=== PATIENT | female | born 1975 | race Caucasian/White ===

== ENCOUNTER 2016-10-20 22:40 | Emergency (ER) | payer OTHER ==
[2016-10-20 22:59] VITALS: BP 116/78; PULSE 83; TEMP 98.4; BMI 27.4
[2016-10-20] MEDS ORDERED: DEXAMETHASONE LIQUID 0.5 MG/5 ML 240 ML BULK BOTTLE PO ONE (23:17)
[2016-10-20] MEDS ORDERED: ALBUTEROL SO4 2.5/IPRATROPIUM 0.5 INH SOL 3 ML VIAL.NEB. NEB ONE ×2 (23:17→23:26)
--- NOTE | 2016-10-20 23:17 | PDOC ---
History of Present Illness - General History Source: Patient Exam Limitations: No Limitations - History of Present Illness Initial Comments: 10/20/16 23:22 The patient is 41 a year old female with a significant past medical history of asthma and hypertension, presenting to the Emergency Department with shortness of breath and cough for one week. The patient reports that she has had shortness of breath which has worsened over the past week, and that is worse at night. She admits to using an inhaler each night this week, most recently last night. The patient states that she believes her symptoms are due to her asthma, though she has not had an asthma attack in at least a year. The patient also admits to a nonproductive cough. The patients last menstrual period was earlier this month. The patient denies chills, or fever. Patient denies nausea, vomiting, and diarrhea. Patient denies palpitations, chest pain, and diaphoresis. Patient denies dizziness, or lightheadedness. Past Medical Hx: sciatica, herniated discs to LS, chronic lower back pain <Mare Garza - Last Filed: 10/20/16 23:22> <Hyun Verdugo - Last Filed: 10/22/16 05:03> - General Chief Complaint: Asthma Stated Complaint: DIFF. BREATHING Time Seen by Provider: 10/20/16 23:00 Past History <Mare Garza - Last Filed: 10/20/16 23:22> - Past Medical History Asthma: Yes (well controlled) HTN: Yes Suicide Attempt (Hx): No - Psycho/Social/Smoking Cessation Hx Anxiety: No Suicidal Ideation: No Smoking Status: No Smoking History: Never smoked Have you smoked in the past 12 months: No Number of Cigarettes Smoked Daily: 0 Information on smoking cessation initiated: No Hx Alcohol Use: No Drug/Substance Use Hx: No Substance Use Type: None <Hyun Verdugo - Last Filed: 10/22/16 05:03> - Past Medical History Allergies/Adverse Reactions: Allergies Allergy/AdvReac Type Severity Reaction Status Date / Time egg Allergy Verified 10/20/16 22:55 seafood Allergy Uncoded 10/20/16 22:55 Home Medications: Ambulatory Orders Hydrochlorothiazide [Hctz -] 25 mg PO DAILY 01/20/14 Azithromycin [Zithromax -] 250 mg PO UTDICT #4 tab 10/21/16 Prednisone [Deltasone -] 2 tab PO DAILY #10 tablet 10/21/16 Review of Systems - Review of Systems Able to Perform ROS?: Yes Comments:: 10/20/16 23:23 GENERAL/CONSTITUTIONAL: No fever or chills. No weakness. HEAD, EYES, EARS, NOSE AND THROAT: No change in vision. No ear pain or discharge. No sore throat. CARDIOVASCULAR: No chest pain or shortness of breath. RESPIRATORY: + shortness of breath, + cough. No hemoptysis. GASTROINTESTINAL: No nausea, vomiting, diarrhea or constipation. GENITOURINARY: No dysuria, frequency, or change in urination. MUSCULOSKELETAL: No joint or muscle swelling or pain. No neck or back pain. SKIN: No rash NEUROLOGIC: No headache, vertigo, loss of consciousness, or change in strength/ sensation. ENDOCRINE: No increased thirst. No abnormal weight change. HEMATOLOGIC/LYMPHATIC: No anemia, easy bleeding, or history of blood clots. ALLERGIC/IMMUNOLOGIC: No hives or skin allergy. <Mare Garza - Last Filed: 10/20/16 23:22> *Physical Exam - Vital Signs Last Vital Signs Temp Pulse Resp BP Pulse Ox 98.4 F 83 23 116/78 100 10/20/16 22:55 10/20/16 22:55 10/20/16 22:55 10/20/16 22:55 10/20/16 22:55 - Physical Exam Comments: 10/20/16 23:23 GENERAL: Awake, alert, and fully oriented, in no acute distress HEAD: No signs of trauma EYES: PERRLA, EOMI, sclera anicteric, conjunctiva clear ENT: Auricles normal inspection, hearing grossly normal, nares patent, oropharynx clear without exudates. Moist mucosa NECK: Normal ROM, supple, no lymphadenopathy, JVD, or masses LUNGS: Wheezing at the bases bilaterally. No crackles HEART: Regular rate and rhythm, normal S1 and S2, no murmurs, rubs or gallops ABDOMEN: Soft, nontender, normoactive bowel sounds. No guarding, no rebound. No masses EXTREMITIES: Normal range of motion, no edema. No clubbing or cyanosis. No cords, erythema, or tenderness NEUROLOGICAL: Cranial nerves II through XII grossly intact. Normal speech, normal gait SKIN: Warm, Dry, normal turgor, no rashes or lesions noted. <Mare Garza - Last Filed: 10/20/16 23:22> - Vital Signs Last Vital Signs Temp Pulse Resp BP Pulse Ox 98.4 F 83 23 116/78 100 10/20/16 22:55 10/20/16 22:55 10/20/16 22:55 10/20/16 22:55 10/20/16 22:55 <Hyun Verdugo - Last Filed: 10/22/16 05:03> Medical Decision Making - Medical Decision Making 10/22/16 05:02 Pt comes with asthma exacerbation. Improved in the ER with treatment. She will be sent home with [facility], as she has been coughing x 2 weeks and her asthma is not improving. <Hyun Verdugo - Last Filed: 10/22/16 05:03> *DC/Admit/Observation/Transfer - Attestations Scribe Attestion: 10/20/16 23:24 Documentation prepared by Mare Garza, acting as director medical for Hyun Verdugo MD. <Mrae Garza - Last Filed: 10/20/16 23:22> - Discharge Dispostion Admit: No <Hyun Verdugo - Last Filed: 10/22/16 05:03> Diagnosis at time of Disposition: Asthma attack, Bronchitis - Discharge Dispostion Disposition: HOME Condition at time of disposition: Stable - Prescriptions Prescriptions: Prednisone [Deltasone -] 2 tab PO DAILY #10 tablet Azithromycin [Zithromax -] 250 mg PO UTDICT #4 tab - Referrals Referrals: Sushila Cedillo [Primary Care Provider] - - Patient Instructions Printed Discharge Instructions: Asthma -- Adult, DI for Acute Bronchitis - Post Discharge Activity
[2016-10-20] MEDS ORDERED: DEXAMETHASONE SOD PHOSPHATE 4 MG/1 ML VIAL ONE (23:26)
[2016-10-21] MEDS ORDERED: AZITHROMYCIN 250 MG TABLET (FP) PO ONE (01:43)
[2016-10-21] MEDS ORDERED: ALBUTEROL SO4 2.5/IPRATROPIUM 0.5 INH SOL 3 ML VIAL.NEB. NEB ONE ×2 (01:45→02:02)
[2016-10-21] MEDS ORDERED: AZITHROMYCIN 250 MG TABLET (FP) ONE (02:02)
== END 2016-10-21 02:41 | disposition home or self-care (01) ==
LOC: JER 22:40
PROC: 3E0F7GC Introduction of Other Therapeutic Substance into Respiratory Tract, Via Natural or Artificial Opening (ICD-10-PCS; principal; 2016-10-20)
PROC: 3E0F7GC Introduction of Other Therapeutic Substance into Respiratory Tract, Via Natural or Artificial Opening (ICD-10-PCS; 2016-10-20)
DX: J45.901 Unspecified asthma with (acute) exacerbation (principal); J40 Bronchitis, not specified as acute or chronic; I10 Essential (primary) hypertension
CPT/HCPCS: 71020-TC; 84703; 94640; 99282-25

== ENCOUNTER 2021-01-19 07:23 | Emergency (ER) | payer OTHER ==
[2021-01-19 07:34] VITALS: BP 143/90; PULSE 102; TEMP 97; BMI 25.8
[2021-01-19] MEDS ORDERED: KETOROLAC TROMETHAMINE 60 MG/2 ML VIAL IM ONE (07:52)
[2021-01-19] MEDS ORDERED: predniSONE 20 MG TABLET (UD) PO ONE (07:52)
[2021-01-19] MEDS ORDERED: predniSONE 20 MG TABLET (UD) ONE (08:01)
[2021-01-19] MEDS ORDERED: KETOROLAC TROMETHAMINE 60 MG/2 ML VIAL ONE (08:01)
== END 2021-01-19 08:48 | disposition home or self-care (01) ==
LOC: JER 07:23
PROC: 3E0233Z Introduction of Anti-inflammatory into Muscle, Percutaneous Approach (ICD-10-PCS; principal; 2021-01-19)
DX: M54.12 Radiculopathy, cervical region (principal); M54.6 Pain in thoracic spine; R20.2 Paresthesia of skin; R53.1 Weakness
CPT/HCPCS: 99284-25

== ENCOUNTER 2023-05-31 17:27 | Emergency (ER) | payer OTHER ==
[2023-05-31 17:50] VITALS: BP 168/89; PULSE 66; RESP 18; TEMP 98.3; BMI 27.7
[2023-05-31] MEDS ORDERED: SODIUM CHLORIDE 0.9% 500 ML INFUS.BAG IV ONE (18:27)
[2023-05-31] MEDS ORDERED: METOCLOPRAMIDE HCL INJECTION 10 MG/2 ML VIAL IVPB ONE (18:28)
[2023-05-31] MEDS ORDERED: ACETAMINOPHEN 1000 MG/100 ML BAG IVPB ONE (18:29)
[2023-05-31] MEDS ORDERED: METOCLOPRAMIDE HCL INJECTION 10 MG/2 ML VIAL ONE (19:09)
[2023-05-31] MEDS ORDERED: ACETAMINOPHEN INJECTION 100 ML IVPB ONE (19:09)
== END 2023-05-31 21:38 | disposition home or self-care (01) ==
LOC: JER 17:27
PROC: 3E033NZ Introduction of Analgesics, Hypnotics, Sedatives into Peripheral Vein, Percutaneous Approach (ICD-10-PCS; principal; 2023-05-31)
PROC: 3E033GC Introduction of Other Therapeutic Substance into Peripheral Vein, Percutaneous Approach (ICD-10-PCS; 2023-05-31)
DX: R51.9 Headache, unspecified (principal)
CPT/HCPCS: 99284-25